=== PATIENT | male | born 1985 | race Two or more races ===

== ENCOUNTER 2024-08-24 06:18 | Emergency (ER) | payer OTHER ==
[~2024-08-24] VITALS: Ht 170.2 cm; Wt 72.6 kg
[2024-08-24] MEDS ORDERED: 0.9 % SODIUM CHLORIDE 1,000 ML IV STA (07:15)
[2024-08-24] MEDS ORDERED: KETOROLAC TROMETHAMINE 30 MG VIAL IV STA (07:15)
[2024-08-24] MEDS ORDERED: MORPHINE SULFATE 4 MG/ML VIAL IV STA (07:16)
[2024-08-24] MEDS ORDERED: PROMETHAZINE HCL 50 MG/ML AMPUL IM STA (07:17)
[2024-08-24] MEDS ORDERED: PROMETHAZINE HCL 50 MG/ML AMPUL IM ONE (07:23)
[2024-08-24] MEDS ORDERED: KETOROLAC TROMETHAMINE 30 MG VIAL ONE (07:23)
[2024-08-24 07:56] LABS: BASO % 0.3 % (0.1-1.2); EOS # 0.09 (0.04-0.54); EOS % 1.4 % (0.7-7.0); HEMATOCRIT 42.3 % (40.1-51.0); HEMOGLOBIN 14.4 g/dL (13.7-17.5); LYMPH # 1.55 (1.18-3.74); LYMPH % 23.6 % (19.3-53.1); MEAN CORPUSCULAR HEMOGLOBIN 30.8 pg (25.6-32.2); MONO % 6.1 % (4.7-12.5); NEUT % 68.4 % (34.0-71.1); PLATELET COUNT 211 K/uL (163-369); RED BLOOD COUNT 4.68 M/uL (4.63-6.08); RED CELL DISTRIBUTION WIDTH 12.8 % (11.6-14.4)
[2024-08-24 08:31] LABS: CREATININE SERUM 1.05 mg/dL (0.70-1.30); GFR 78.63; POTASSIUM 3.97 mEq/L (3.5-5.1)
[2024-08-24 09:41] LABS: URINE APPEARANCE Clear; URINE BILIRRUBIN Negative (NEGATIVE); URINE BLOOD Large; URINE COLOR Yellow; URINE GLUCOSE Negative (NEGATIVE); URINE KETONE Negative (NEGATIVE); URINE LEUKOCYTE Negative; URINE NITRATE Negative; URINE PROTEIN Negative (NEGATIVE); URINE UROBILINOGEN 0.2 E.U./dl
[2024-08-24 09:46] LABS: URINE BACTERIA 4.8 uL (0.0-1933); URINE EPITHELIAL CELLS 1.4 uL (0.0-38.8); URINE RBC 429.7 uL (0.0-20.8); URINE WBC 5.5 uL (0.0-23.2)
[2024-08-24] MEDS ORDERED: TAMSULOSIN HCL 0.4 MG CAP PO ONE (10:00)
== END 2024-08-24 14:04 | disposition home or self-care (01) ==
LOC: ER 06:18
DX: R10.9 Unspecified abdominal pain (principal)